=== PATIENT | female | born 1980 | race Hispanic/Latino ===

== ENCOUNTER 2022-08-30 20:35 | Emergency (ER) | payer BC ==
[~2022-08-30] VITALS: Ht 144.8 cm; Wt 63.0 kg
[~2022-08-30 20:35] MED LIST: PRAV10TA39 PO; SOLI5 PO; TAMS-1 PO; TYL3 PO
[2022-08-31] MEDS ORDERED: ONDANSETRON 4MG INJ IVP ONE (01:00)
[2022-08-31] MEDS ORDERED: 0.9%NACL 1000ML 1,000 ML IV ONE (01:00)
[2022-08-31] MEDS ORDERED: MORPHINE 4 MG SYG IVP ONE (01:00)
[2022-08-31 01:32] LABS: BASOPHILS % (AUTO) 0.7 % (0.0-5.0); HEMATOCRIT 39.8 % (36-48); LYMPHOCYTES % (AUTO) 12.1 % (21.0-51.0); MEAN CORPUSCULAR HGB CONC 35.2 g/dL (32.0-36.0); MEAN CORPUSCULAR VOLUME 90.9 fL (79-99); MONOCYTES % (AUTO) 1.9 % (3.0-13.0); NEUTROPHILS % (AUTO) 83.9 % (40.0-77.0); PLATELET COUNT (AUTO) 103 K/uL (130-400); RED BLOOD CELL COUNT(AUTO) 4.38 MIL/uL (4.00-5.50); WHITE BLOOD COUNT (AUTO) 5.9 K/uL (4.8-10.8)
[2022-08-31 01:34] LABS: APPEARANCE,URINE CLOUDY (CLEAR); BILIRUBIN,URINE 1 mg/dL (NEGATIVE); COLOR,URINE YELLOW (YELLOW); GLUCOSE, URINE (UA) NEGATIVE (NEGATIVE); KETONES,URINE 20 mg/dL (NEGATIVE); LEUKOCYTE ESTERASE ,URINE NEGATIVE Leu/uL (NEGATIVE); NITRATE,URINE NEGATIVE (NEGATIVE); PH,URINE 6.5 (5.0-8.0); PROTEIN,URINE 200 mg/dL (NEGATIVE); UROBILINOGEN,URINE >=8.0 mg/dL (0.2-1.0)
[2022-08-31 01:40] LABS: BACTERIA,URINE RARE /HPF (None Seen); MUCUS,URINE MOD LPF (None Seen); SQUAMOUS EPITHELIAL CELL,UR MANY /HPF (0-2)
[2022-08-31 01:41] LABS: CREATININE 0.9 mg/dL (0.5-1.5); POTASSIUM 3.4 mmol/L (3.5-5.1)
[2022-08-31 01:45] LABS: ALBUMIN 3.4 g/dL (3.5-5.0); TOTAL PROTEIN, SERUM 7.1 g/dL (6.0-8.3)
[2022-08-31] MEDS ORDERED: KCL 20 MEQ ERTAB PO ONE (04:00)
[2022-08-31] MEDS ORDERED: MACR100 PO (04:16)
[2022-08-31] MEDS ORDERED: PHEN-847 PO (04:16)
[2022-08-31] MEDS ORDERED: ACETAMINOPHEN 325 MG TAB PO ONE (07:30)
[2022-08-31] MEDS ORDERED: KETOROLAC 30MG VIAL (30MG/ML) IVP ONE (08:00)
[2022-08-31] MEDS ORDERED: 0.9%NACL 1000ML 1,000 ML IV SCH (08:00)
[2022-08-31 08:56] VITALS: BP 112/74
== END 2022-08-31 09:57 | disposition home or self-care (01) ==
LOC: EDH 20:35
DX: N39.0 Urinary tract infection, site not specified (principal); B34.9 Viral infection, unspecified; R74.01 Elevation of levels of liver transaminase levels; K76.89 Other specified diseases of liver; J90 Pleural effusion, not elsewhere classified; E78.00 Pure hypercholesterolemia, unspecified; Z90.49 Acquired absence of other specified parts of digestive tract
CPT/HCPCS: 99285; 80053; 83690; 85025; 81001; 81025; 36415; 74176; 96374; 76705; 96361; 96375; J7030 ×2; J2405; J2270; J1885